=== PATIENT | female | born 1975 | race Caucasian/White ===

== ENCOUNTER 2021-11-22 14:54 | Emergency (ER) | payer OTHER, SELFPAY ==
[2021-11-22 15:06] VITALS: BP 114/76; PULSE 92; RESP 18; TEMP 37.1; O2SAT 98
[2021-11-22 15:07] VITALS: BP 114/76; PULSE 92; RESP 18; TEMP 37.1; O2SAT 98
--- NOTE | 2021-11-22 15:12 | ED.FEMALEGU ---
HPI - Female Genitourinary General Chief complaint: Urogenital-Female Stated complaint: Female Urogenital Time Seen by Provider: 11/22/21 15:12 History of Present Illness HPI Narrative: Isaura Avitia is a 46 yo female with PMH of ADD and who recently had hysterectomy who is here for genital irritation, second opinion about condition of her vaginal skin and discharge. She had both IV antibiotics and Keflex at [place] [facility] on Saturday night she is feeling, feverish and upset since then. Is continue to take her Keflex prescription. She was tested for BV which was negative. worried about a staph infection or herpes single partner Related Data Home Medications Medication Instructions Recorded Confirmed bupropion HCl 150 mg 24 hr tablet, 150 mg PO DAILY 11/22/21 11/22/21 extended release cholecalciferol (vitamin D3) 1,250 1,250 mcg PO WEEKLY 11/22/21 11/22/21 mcg (50,000 unit) capsule dextroamphetamine-amphetamine ER 20 mg PO DAILY 11/22/21 11/22/21 20 mg 24hr capsule,extend release Allergies Allergy/AdvReac Type Severity Reaction Status Date / Time No Known Allergies Allergy Verified 11/22/21 15:05 Review of Systems Review of Systems: CONSTITUTIONAL: Denies fever, chills, sweats. EYES: Denies visual changes, redness, discharge. ENT: Denies rhinorrhea, congestion, sore throat, otalgia. CARDIOVASCULAR: Denies chest pain, palpitations, edema. RESPIRATORY: Denies dyspnea, wheezing, cough GASTROINTESTINAL: Denies abdominal pain, nausea, vomiting, diarrhea. GENITOURINARY: Denies dysuria, hematuria, abnormal discharge-irritated skin with discharge SKIN: Denies rash or itching. NEUROLOGIC: Denies numbness, or focal weakness. PSYCHIATRIC: Denies anxiety or depression. FORMERLY [facility], [facility] Past Medical History Medical History (Updated 11/22/21 @ 15:48 by Kenia Marin CNP) ADD (attention deficit disorder) Surgical History Surgical History (Updated 11/22/21 @ 15:44 by Kenia Marin CNP) History of partial hysterectomy Social History Social History Smoking status: Never smoker Alcohol intake: current Comments At time of signature, I agree with nursing past medical, surgical, social and family history. There is no relevant family history pertinent to the presenting complaint. Exam Narrative: GENERAL: This is a well-nourished, well-developed patient, in mild distress. She is very upset and very near tearful- HEAD: normocephalic, atraumatic. EYES: Sclera clear/white. Vision is grossly intact. EARS: External ears normal. Hearing grossly intact. NOSE: External nose normal without nasal discharge, nares without redness, no rhinorrhea. THROAT: Mucous membranes moist, NECK: Neck supple, non-tender CARDIOVASCULAR: Regular rate and rhythm without murmurs, gallops, or rubs. RESPIRATORY: Clear to auscultation. Breath sounds equal bilaterally. No wheezes, rales, or rhonchi. GASTROINTESTINAL: Abdomen soft, non-tender, : JVD genital area with clear with whitish pieces dripping from the vaginal vault irritation of the labial lips and across the top of the labia; looks very moist and irritated SKIN: warm, intact with no suspicious lesions or rash, good texture and turgor. NEURO: awake, alert, and oriented to person, place and time. There were no obvious focal neurologic abnormalities. Steady gait EXTREMITIES: Normal range of motion. BACK: Nontender without deformity Course Course Emergency Course: Patient here with a vaginal discharge and skin irritation post hysterectomy on October 20 UA shows 2+ blood, 1+ leukocytes Culture of vaginal discharge taken looking for yeast Started on Diflucan now and to be repeated when she completes antibiotics- given at [facility] Level of Care: Express Care Visit Vital Signs Vital signs: Vital Signs Temperature 98.7 F 11/22/21 15:06 Pulse Rate 92 11/22/21 15:06 Respiratory Rate 18 11/22/21 15:06 Blood Pressu
== END 2021-11-22 15:56 | disposition home or self-care (01) ==
PROVIDERS: Emergency Provider Nurse Practitioner; PCP Physician Assistant
DX: B37.3 Candidiasis of vulva and vagina (principal); F98.8 Other specified behavioral and emotional disorders with onset usually occurring in childhood and adolescence; Z90.711 Acquired absence of uterus with remaining cervical stump; R82.90 Unspecified abnormal findings in urine
CPT/HCPCS: 81003; 87070; 87086; 99203; G0463

== ENCOUNTER 2022-04-06 10:31 | Emergency (ER) | payer OTHER, SELFPAY ==
--- NOTE | 2022-04-06 10:42 | ED.FEMALEGU ---
HPI - Female Genitourinary General Chief complaint: Urogenital-Female Stated complaint: UTI Time Seen by Provider: 04/06/22 10:49 Source: patient and RN notes reviewed Mode of arrival: ambulatory Limitations: no limitations History of Present Illness HPI Narrative: 46-year-old female presents with concern for vaginal discharge and vaginal discomfort, urine frequency. Reports she had a vaginal hysterectomy in in October, and since then has had some issues such as irritation, discharge, UTI. She reports she was treated in November and symptoms improved. Reports over the last several days she has noted some urine frequency, after intercourse she had vaginal tearing. She reports during her hysterectomy they did vaginal tightening which can cause intercourse 3 painful. She reports noticing white purulent discharge MD elicited complaint: vaginal discharge Related Data Home Medications Medication Instructions Recorded Confirmed bupropion HCl 150 mg 24 hr tablet, 150 mg PO DAILY 11/22/21 04/06/22 extended release cholecalciferol (vitamin D3) 1,250 1,250 mcg PO WEEKLY 11/22/21 04/06/22 mcg (50,000 unit) capsule dextroamphetamine-amphetamine ER 20 mg PO DAILY 11/22/21 04/06/22 20 mg 24hr capsule,extend release Allergies Allergy/AdvReac Type Severity Reaction Status Date / Time No Known Allergies Allergy Verified 04/06/22 10:32 Review of Systems Review of Systems: CONSTITUTIONAL: Denies malaise, chills, sweats, or fever. CARDIOVASCULAR: Denies chest pain, palpitations, or edema. RESPIRATORY: Denies cough or dyspnea. GASTROINTESTINAL: Denies abdominal pain, nausea, vomiting, diarrhea GENITOURINARY: Denies dysuria, urgency, suprapubic pressure. Denies flank pain or hematuria. Reports vaginal tearing, purulent vaginal discharge SKIN: Denies rash or itching. MUSCULOSKELETAL: Denies back pain or myalgia. All systems reviewed & are unremarkable except as noted in HPI and below PMFSH Past Medical History Medical History (Updated 04/06/22 @ 11:05 by Azucena Nixon NP) ADD (attention deficit disorder) Surgical History Surgical History (Updated 11/22/21 @ 15:44 by Kenia Marin, PETE) History of partial hysterectomy Social History Social History Smoking status: Never smoker Alcohol intake: current Comments At time of signature, agree with nursing past medical, surgical, social and family history. There is no relevant family history pertinent to the presenting complaint Exam Narrative: GENERAL: Well-appearing, well-nourished, and in no acute distress. HEAD: Normocephalic. EYES: PERRLA, conjunctivae clear. NECK: Supple. No lymphadenopathy CHEST: Clear to auscultation. No respiratory distress. HEART: Regular rate and rhythm. SKIN: Warm, dry, no rash. NEURO: Alert and oriented x3. PSYCH: Normal mood and affect : External Female Exam: laceration Speculum Exam - Vagina: normal appearance of the vagina and abnormal vaginal discharge yellow Speculum Exam - Cervix: normal appearance of the cervix and normal palpation Course Course Emergency Course: Patient is aware of diagnosis, understands and agrees to treatment plan. Anticipatory guidance given. Patient agrees to follow-up as directed and is aware of reasons to seek care at the emergency department. Portions of this record may have been created with voice recognition software Level of Care: Express Care Visit Vital Signs Vital signs: Reviewed. MDM - Female Genitourinary MDM Narrative Medical decision making narrative: Exam findings and UA show no acute concerns or changes; patient is non-toxic appearing and is in no distress. Patient is appropriate for outpatient treatment and follow-up. Differential Diagnosis Differential diagnosis: Likely urinary tract infection, bacterial vaginosis, cervicitis, vaginitis and cystitis Critical Care Time Critical Care Time Critical Care Time:
[2022-04-06 10:43] VITALS: BP 130/90; PULSE 85; RESP 18; TEMP 36; O2SAT 99
== END 2022-04-06 11:08 | disposition home or self-care (01) ==
PROVIDERS: Emergency Provider Nurse Practitioner; PCP Physician Assistant
DX: N89.8 Other specified noninflammatory disorders of vagina (principal)
CPT/HCPCS: 81003; 87086; 99214; G0463

== ENCOUNTER 2022-05-09 10:52 | Emergency (ER) | payer OTHER, BC, SELFPAY ==
[2022-05-09 11:24] VITALS: BP 103/69; PULSE 91; RESP 20; TEMP 36.4; O2SAT 97
--- NOTE | 2022-05-09 11:40 | ED.URI ---
HPI - URI/Sore Throat General Chief Complaint: Upper Respiratory Infection Stated Complaint: bodyaches,chills Time Seen by Provider: 05/09/22 11:35 Source: patient, RN notes reviewed and old records reviewed Mode of arrival: ambulatory Limitations: no limitations History of Present Illness HPI Narrative: 46-year-old female presents to [facility] with complaints of body aches and fevers since Saturday. Patient reports that on Saturday evening she noted body aches then on Saturday symptoms continued with fevers up to 100F. Patient reports that she continues to have body aches, some headache discomfort and general malaise. She reports that she has been taking Tylenol and Ibuprofen for her symptoms with no known fevers but some chills. Patient states that she had COVID on 03/27/2022 and did take Paxlovid antiviral. Patient denies any cough or any shortness of breath, denies any nausea,vomiting, or diarrhea.Patient reports that she had COVID vaccinations but no Boosters. MD elicited complaint: fever (low grade) and other (body aches, headache) Pertinent past history: other (COVID 1 month ago) Onset (ago): day(s) (4-5 days) Pain scale (0-10): 6 Able to tolerate fluids by mouth: Yes Treatments prior to arrival: acetaminophen and ibuprofen Related Data Home Medications Medication Instructions Recorded Confirmed bupropion HCl 150 mg 24 hr tablet, 150 mg PO DAILY 11/22/21 05/09/22 extended release cholecalciferol (vitamin D3) 1,250 1,250 mcg PO WEEKLY 11/22/21 05/09/22 mcg (50,000 unit) capsule dextroamphetamine-amphetamine ER 20 mg PO DAILY 11/22/21 05/09/22 20 mg 24hr capsule,extend release Allergies Allergy/AdvReac Type Severity Reaction Status Date / Time No Known Allergies Allergy Verified 05/09/22 11:08 Review of Systems Review of Systems: CONSTITUTIONAL: reports malaise, chills, sweats, or fever. EYES: Denies visual changes, redness, or discharge. ENT: Reports rhinorrhea, congestion, sinus pain,no otalgia no sore throat. CARDIOVASCULAR: Denies chest pain, palpitations, or edema. RESPIRATORY: Reports no cough.? Denies dyspnea. GASTROINTESTINAL: Denies abdominal pain, nausea, vomiting, diarrhea SKIN: Denies rash or itching. MUSCULOSKELETAL: Reports myalgia. NEUROLOGIC: Reports headache. All systems reviewed & are unremarkable except as noted in HPI and below PMFSH Past Medical History Medical History ADD (attention deficit disorder) Surgical History Surgical History History of partial hysterectomy Social History Social History Smoking status: Never smoker Alcohol intake: current Comments At time of signature, agree with nursing past medical, surgical, social and family history. There is no relevant family history pertinent to the presenting complaint Exam Narrative: GENERAL: Well-appearing, well-nourished, and in no acute distress. HEAD: Normocephalic EYES: PERRLA, conjunctivae clear ENT: Nares clear, turbinates edematous and erythematous, clear discharge. Mucous membranes moist. TM pearly moe with dull light reflex bilaterally; no tragal tenderness. Oropharynx erythematous without lesions. Tonsils not enlarged and without exudate, no drooling, no hoarseness, no trismus, uvula midline. NECK: Supple. No lymphadenopathy CHEST: Clear to auscultation, breath sounds equal. No wheezing, rhonchi, rales, or stridor. No respiratory distress, speaks in full sentences.no cough noted SAO2 97% on room air HEART: Regular rate and rhythm. No murmur heard. SKIN: Warm, dry, no rash. NEURO: Alert and oriented x3. PSYCH: Normal mood and affect Course Course Emergency Course: Patient is aware of diagnosis, understands and agrees to treatment plan.? Anticipatory guidance given.? Patient agrees to follow-up as directed and
== END 2022-05-09 12:05 | disposition home or self-care (01) ==
PROVIDERS: Emergency Provider Registered Nurse; PCP Physician Assistant
DX: B34.9 Viral infection, unspecified (principal); Z20.822 Contact with and (suspected) exposure to COVID-19; F98.8 Other specified behavioral and emotional disorders with onset usually occurring in childhood and adolescence; Z86.16 Personal history of COVID-19
CPT/HCPCS: 87426; 87804; 99213; C9803; G0463

== ENCOUNTER 2022-05-23 18:46 | Emergency (ER) | payer OTHER, BC, SELFPAY ==
[2022-05-23 18:53] VITALS: BP 131/89; PULSE 76; RESP 18; TEMP 36.2; O2SAT 100
--- NOTE | 2022-05-23 19:19 | ED.FEMALEGU ---
HPI - Female Genitourinary General Chief complaint: Urogenital-Female Stated complaint: Female Urogenital Time Seen by Provider: 05/23/22 19:12 Source: patient Mode of arrival: ambulatory Limitations: no limitations History of Present Illness HPI Narrative: Patient presents today complaining of 3 day history of vaginal discomfort and irritation with external genital itching and thick white discharge that started today. States she has had a few recent vaginal yeast infection episodes within the last 3-4 days and states her current symptoms are similar. Related Data Home Medications Medication Instructions Recorded Confirmed bupropion HCl 150 mg 24 hr tablet, 150 mg PO DAILY 11/22/21 05/23/22 extended release cholecalciferol (vitamin D3) 1,250 1,250 mcg PO WEEKLY 11/22/21 05/23/22 mcg (50,000 unit) capsule dextroamphetamine-amphetamine ER 20 mg PO DAILY 11/22/21 05/23/22 20 mg 24hr capsule,extend release Allergies Allergy/AdvReac Type Severity Reaction Status Date / Time No Known Allergies Allergy Verified 05/23/22 18:52 Review of Systems Review of Systems: CONSTITUTIONAL: Denies body aches, fever, chills, or sweats. EYES: Denies visual changes, redness, or discharge. ENT: Denies rhinorrhea, congestion, sore throat, or otalgia. CARDIOVASCULAR: Denies chest pain, palpitations, or edema. RESPIRATORY: Denies cough or dyspnea. GASTROINTESTINAL: Denies abdominal pain, nausea, vomiting, or diarrhea. GENITOURINARY: Denies dysuria or hematuria.+ vaginal irritation, genital itching and discharge SKIN: Denies rash, itching, or wounds. MUSCULOSKELETAL: Denies back pain, joint pain, or myalgia. NEUROLOGIC: Denies headache, numbness, tingling, or weakness. PSYCH: Denies depression or anxiety. FORMERLY [facility] Past Medical History Medical History ADD (attention deficit disorder) Surgical History Surgical History History of partial hysterectomy Social History Social History Smoking status: Never smoker Alcohol intake: current Comments At time of signature, I have reviewed and agree with nursing past medical, surgical, social and family history unless otherwise noted. Please see nursing chart for further information. There is no relevant family history pertinent to the presenting complaint Exam Narrative: GENERAL: Well-appearing, well-nourished, and in no acute distress. HEAD: Normocephalic, atraumatic. EYES: EOMI. No redness or drainage. Conjunctivae normal. ENT: Mucous membranes pink and moist. NECK: Normal AROM. CHEST: No respiratory distress. : Patient declines vaginal/pelvic exam. EXTREMITIES: Normal range of motion. No edema. SKIN: Warm, dry, no rash. Capillary refill normal. Normal skin turgor. NEURO: No focal deficits. Alert and oriented x3. Gait steady. PSYCH: Normal affect. No signs of depression or anxiety. Course Course Level of Care: Express Care Visit Vital Signs Vital signs: Vital Signs Temperature 97.1 F L 05/23/22 18:53 Pulse Rate 76 05/23/22 18:53 Respiratory Rate 18 05/23/22 18:53 Blood Pressure 131/89 05/23/22 18:53 Pulse Oximetry 100 05/23/22 18:53 Oxygen Delivery Room Air 05/23/22 18:53 Temperature 97.1 F L 05/23/22 18:53 Pulse Rate 76 05/23/22 18:53 Respiratory Rate 18 05/23/22 18:53 Blood Pressure 131/89 05/23/22 18:53 Pulse Oximetry 100 05/23/22 18:53 Oxygen Delivery Room Air 05/23/22 18:53 Reviewed. Pt has been instructed to follow up with her PCP regarding her elevated blood pressure today. MDM - Female Genitourinary MDM Narrative Medical decision making narrative: Patient's symptoms are consistent with vaginal yeast infection. Prescription for Diflucan will be sent to pharmacy. Anticipatory guidance given for prevention and treatment. D
== END 2022-05-23 19:25 | disposition home or self-care (01) ==
PROVIDERS: Emergency Provider Nurse Practitioner; PCP Physician Assistant
DX: B37.31 Acute candidiasis of vulva and vagina (principal); F98.8 Other specified behavioral and emotional disorders with onset usually occurring in childhood and adolescence
CPT/HCPCS: 99213; G0463

== ENCOUNTER 2022-10-08 19:06 | Emergency (ER) | payer OTHER, BC, SELFPAY ==
[2022-10-08 19:18] VITALS: BP 135/88; PULSE 75; RESP 18; TEMP 36.8; O2SAT 99
[2022-10-08 19:20] VITALS: BP 135/88; PULSE 75; RESP 18; TEMP 36.8; O2SAT 99
--- NOTE | 2022-10-08 19:33 | ED.FEMALEGU ---
HPI - Female Genitourinary General Chief complaint: Urogenital-Female Stated complaint: vaginal discharge Time Seen by Provider: 10/08/22 19:09 Source: patient Mode of arrival: ambulatory Limitations: no limitations History of Present Illness HPI Narrative: 47-year-old female presents to [facility] with complaints of vaginal itching, vaginal irritation and vaginal itching for the past day. Patient reports that she has had a history of yeast infections for the past year since she started increasing sexual intercourse as well as having a hysterectomy. She reports that she is taking Diflucan in the past which does improve symptoms. Patient denies vaginal odor, urinary symptoms, fever, body aches, chills, nausea, vomiting, diarrhea, abdominal pain or flank pain MD elicited complaint: vaginal discharge and genital itching Onset (ago): day(s) (1) Vaginal discharge: white Vaginal bleeding: none Associated symptoms: denies other symptoms Sexual activity: Yes Patient : No Related Data Home Medications Medication Instructions Recorded Confirmed bupropion HCl 150 mg 24 hr tablet, 150 mg PO DAILY 11/22/21 10/08/22 extended release cholecalciferol (vitamin D3) 1,250 1,250 mcg PO WEEKLY 11/22/21 10/08/22 mcg (50,000 unit) capsule Allergies Allergy/AdvReac Type Severity Reaction Status Date / Time No Known Allergies Allergy Verified 05/23/22 18:52 Review of Systems Constitutional: Constitutional: Denies chills and Denies fatigue ENT: Denies vertigo, Denies dizziness, Denies epistaxis and Denies nasal congestion Cardiovascular: Cardiovascular: Denies chest pain Respiratory: Respiratory: Denies cough, Denies dyspnea and Denies wheezing Gastrointestinal: Gastrointestinal: Denies diarrhea, Denies nausea and Denies vomiting Genitourinary: Genitourinary: Denies abnormal vaginal bleeding, Denies hematuria, Denies nocturia, Denies genital lesions, Denies dysuria, Denies pelvic pain, Denies flank pain, Denies urinary incontinence and Reports vaginal discharge Comments: Vaginal irritation vaginal itching Musculoskeletal: Musculoskeletal: Denies myalgias, Denies arthralgias and Denies joint swelling Integumentary/Breasts: Skin/Breast: Denies rash PMFSH Past Medical History Medical History ADD (attention deficit disorder) Surgical History Surgical History History of partial hysterectomy Social History Social History Smoking status: Never smoker Alcohol intake: current Comments At time of signature, I agree with nursing past medical, surgical, social and family history. There is no relevant family history pertinent to the presenting complaint. Exam Const: General: healthy appearing and no acute distress Nutritional Appearance: well nourished Orientation/consciousness: patient oriented x3 Limitations: no limitations Eyes: Conjunctivae: conjunctivae normal Resp: Effort & Inspection: normal respiratory effort and not labored Auscultation: clear to auscultation bilaterally, no crackles, no rales, no rhonchi and no wheezes Cardio: Rate: regular rate Rhythm: regular rhythm Heart sounds: no murmurs GI: GI Palp: Yes Soft to palpation, No Tenderness to palpation present (GI), No Guarding due to palpation present (GI) and No Rigid due to palpation Auscultation: normal bowel sounds : General: Yes bladder normal to palpation, No Bladder palpation abnormal and No CVA tenderness Back/Spine/Pelvis: Back: no CVA tenderness Skin: General skin exam: normal color Rashes: no rashes Neuro: General: patient oriented x3 Psych: Affect: normal affect Attitude: cooperative Course Course Level of Care: Express Care Visit Vital Signs Vital signs: Vital Signs Temperature 36.8 C 10/08/22 19:18 Pulse Rate 75 10/08/22 19:18 Respi
== END 2022-10-08 19:44 | disposition home or self-care (01) ==
PROVIDERS: Emergency Provider Nurse Practitioner Family; PCP Physician Assistant
DX: B37.31 Acute candidiasis of vulva and vagina (principal); Z90.711 Acquired absence of uterus with remaining cervical stump
CPT/HCPCS: 81003; 99213; G0463